=== PATIENT | male | born 1935 | race Caucasian/White ===

== ENCOUNTER 2017-07-02 12:49 | Emergency (ER) | payer MEDICARE, BC ==
[2017-07-02 13:30] LABS: BASOPHILS 0.3 % (0-2); EOSINOPHILS 2.8 % (0-7); HEMATOCRIT 35.4 % (42.0-54.0); HEMOGLOBIN 11.6 g/dL (13.5-17.5); IMMATURE GRANULOCYTES 0.3 % (0-5); LYMPHOCYTES 28.7 % (15-50); MCH 26.7 pg (26.0-34.0); MCHC 32.8 g/dL (31.0-37.0); MCV 81.4 fL (80.0-100.0); MEAN PLATELET VOLUME 8.9 fL (7.4-10.4); NEUTROPHILS 58.9 % (40-80); PLATELET COUNT 153 10x3/uL (130-400); RBC 4.35 10x6/uL (4.20-6.10); RDW 13.6 % (11.5-14.5); WBC 6.7 10x3/uL (4.8-10.8)
[2017-07-02 13:42] LABS: ALBUMIN 3.8 g/dL (3.4-5.0); BILIRUBIN - TOTAL 0.44 mg/dL (0.2-1.3); CALCIUM 8.9 mg/dL (8.5-10.1); CARBON DIOXIDE 26.1 mmol/L (21.0-32.0); CREATININE - SERUM 1.1 mg/dL (0.6-1.3); POTASSIUM - SERUM 4.1 mmol/L (3.5-5.1); PROTEIN - SERUM 7.2 g/dL (6.4-8.2)
[2017-07-02 14:05] LABS: APPEARANCE CLEAR (CLEAR); BILIRUBIN NEGATIVE (NEGATIVE); COLOR STRAW (YELLOW); GLUCOSE NEGATIVE (NEGATIVE); KETONE NEGATIVE (NEGATIVE); NITRITE NEGATIVE (NEGATIVE); PROTEIN TRACE mg/dL (NEGATIVE); SPECIFIC GRAVITY 1.005 (1.005-1.020); UROBILINOGEN NORMAL (NORMAL)
[2017-07-02 14:15] LABS: CKMB 1.4 U/L (0.0-3.6); CREATINE KINASE 71 UL (21-232); MAGNESIUM - SERUM 1.5 mg/dL (1.8-2.4); THYROID STIMULATING HORMONE 0.96 uIU/mL (0.36-3.74)
[2017-07-02 14:18] LABS: TROPONIN-I < 0.017 ng/mL (0.000-0.060)
[2017-07-02 16:44] LABS: APTT 27.7 SECONDS (22.8-39.4); INR 1.11 (0.85-1.17); PROTIME 13.9 SECONDS (11.6-15.0)
== END 2017-07-02 17:07 | disposition home or self-care (01) ==
LOC: D.ER 12:49
PROVIDERS: Family Medicine
DX: R53.1 Weakness (principal); I48.91 Unspecified atrial fibrillation; E83.42 Hypomagnesemia; K21.9 Gastro-esophageal reflux disease without esophagitis